=== PATIENT | female | born 1970 | race Caucasian/White ===

== ENCOUNTER 2016-11-24 10:40 | Emergency (ER) | payer BC ==
[~2016-11-24] VITALS: Ht 170.2 cm; Wt 110.7 kg
[2016-11-24] MEDS ORDERED: GLUCOPHAGE XR500 MG PO (10:55)
[2016-11-24] MEDS ORDERED: TOPROL XL25 MG PO (10:56)
[2016-11-24] MEDS ORDERED: AMARYL4 MG PO (10:56)
[2016-11-24] MEDS ORDERED: ZOLOFT50 MG PO (10:56)
[2016-11-24] MEDS ORDERED: PERCOCET PO (10:57)
[2016-11-24 11:38] LABS: URINE BILIRUBIN NEGATIVE (Negative); URINE BLOOD 3+ (Negative); URINE COLOR YELLOW; URINE GLUCOSE-RANDOM* NEGATIVE (Negative); URINE KETONES NEGATIVE (Negative); URINE NITRITE NEGATIVE (Negative); URINE PROTEIN (DIPSTICK) NEGATIVE (Negative); URINE UROBILINOGEN 0.2 E.U./dl (0.2-1.0)
[2016-11-24 11:43] LABS: ABSOLUTE NEUTROPHILS 4.4 thou/uL (1.4-8.2); BASOPHILS 0.7 % (0.0-2.0); EOSINOPHILS 2.9 % (0.0-3.0); HEMATOCRIT 35.1 % (37.0-47.0); HEMOGLOBIN 12.3 gm/dL (12.0-15.0); LYMPHOCYTES 32.3 % (24.0-44.0); MANUAL DIFF NO; MCH 32.8 pg (26.0-34.0); MCV 93.8 fL (80.0-100.0); MONOCYTES 7.5 % (1.0-8.0); PLATELET COUNT 204 thou/uL (150-400); POLYS 56.6 % (36.0-66.0); RBC 3.74 mil/uL (4.20-5.00); RDW 14.1 % (10.5-14.5); WBC 7.8 thou/uL (4.0-11.0)
[2016-11-24 11:46] LABS: CALCIUM 8.3 mg/dL (8.5-10.1); CREATININE 0.9 mg/dL (0.6-1.0); POTASSIUM 4.1 mmol/L (3.5-5.1)
[2016-11-24 11:55] LABS: CASTS None Seen /LPF (None Seen); CRYSTALS None Seen /LPF (None Seen); SQUAMOUS 0-3 Few /LPF (0-3)
[2016-11-24 11:56] LABS: URINE RBC 0-2 Rare /HPF (0-2); URINE WBC 0-5 Rare /HPF (0-5)
[2016-11-24 11:57] LABS: BACTERIA 1-9 Few /HPF (None Seen)
[2016-11-24] MEDS ORDERED: COLACE100 MG PO (12:51)
[2016-11-24 13:08] VITALS: BP 107/48
== END 2016-11-24 13:08 | disposition home or self-care (01) ==
LOC: ER 10:40
PROVIDERS: Emergency Medicine
DX: D25.9 Leiomyoma of uterus, unspecified (principal); E11.9 Type 2 diabetes mellitus without complications; Z77.22 Contact with and (suspected) exposure to environmental tobacco smoke (acute) (chronic)